=== PATIENT | female | born 1980 | race Caucasian/White ===

== ENCOUNTER 2016-11-03 11:16 | Emergency (ER) | payer MEDICARE, OTHER ==
[2016-11-03 11:26] VITALS: BMI 22.4
[2016-11-03] MEDS ORDERED: ONDANSETRON 4 MG/2 ML VIAL IVPUSH ONE (11:42)
[2016-11-03] MEDS ORDERED: FAMOTIDINE 20 MG/50 ML IVPB 50 ML IVPB ONE ×2 (11:44→11:56)
[2016-11-03] MEDS ORDERED: ONDANSETRON 4 MG/2 ML VIAL ONE (11:45)
[2016-11-03] MEDS ORDERED: SODIUM CHLORIDE 0.9% 1000 ML INFUS.BAG IV ONE (11:45)
--- NOTE | 2016-11-03 11:55 | PDOC ---
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 The pt states that paproximately 1 month ago, she had intermittent episodes of vomiting, perhaps 1 every few days.. but the past 3 days, it has progressed to the point where she is vomiting multiple times a day - typically it is foamy, clear and looks like food contents without signs of blood, and is not green. pt denies any associated pain including headache, vision changes, chest pain/sob, abdominal pain (unless she is actively vomiting, but resolves shortly afterwards ). No associated diarrhea/melena, fever/chills. Pt went on a cruise in june but was fine for several months prior to onset of these sypmtoms. No proir GI symptoms in the past. The pt states she went to her PMD who referred her to GI and she has an appontment for endoscopy in January. - Physicial Exam PE: 11/03/16 11:59 GENERAL: The patient is awake, alert, and fully oriented, Nontoxic - in no acute distress. HEAD: Normocephalic, atraumatic. EYES: aniridia of R pupil, L pupils 2mm and reactive to light ENT: Normal voice, dry mucous membranes. NECK: Normal range of motion, supple LUNGS: Breath sounds equal, clear to auscultation bilaterally. No wheezes, no rhonchi, no rales. HEART: Regular rate and rhythm, normal S1 and S2 without murmur, rub or gallop. ABDOMEN: Soft, nontender, normoactive bowel sounds. No guarding, no rebound. . No CVA tenderness EXTREMITIES: Normal range of motion, no edema. NEUROLOGICAL: No facial assymetry, Normal speech, normal gait PSYCH: Normal mood, normal affect. SKIN: Warm, Dry, normal turgor, - Medical Decision Making 11/03/16 12:10 36y F hx of congenital rubellla presents with persistrent intractable vomiting worsening over 3 days w/o associated abd pain, chest pain, head ache, dizziness, fever/chills, diarhea. on exam pt appears in n odistres but has intermittent vomiting episodes will ck labs to ro metabolic dernagment, uti, , pancreatitis no abd tenderness to suggest intrabdominal peritonitis or obstruction will give fluids, zofran will reassess 11/03/16 15:35 pts labs unremarkble ua notable for ketonuria pt persistently vomting and has occasional stress incontinence (Which she says is old) as pt has no abdominal pain or tenderness will start with head CT to r/o mass/ICH 11/03/16 16:[address] negative pt feelnig significant improvement able to tolerate oral intake here her abdomen was reassessed and it is soft nontender. jie dc the pt with PO reglan/zofran and PMD/gastro fu this week return precautions were discussed I discussed the physical exam findings, ancillary test results and final diagnoses with the patient. I answered all of the patient's questions. The patient was satisfied with the care received and felt comfortable with the discharge plan and treatment plan. The patient will call their primary care physician within 24 hours to arrange follow-up and will return to the Emergency Department with any new, persistent or worsening symptoms.
[2016-11-03 12:27] LABS: BASOPHIL 0.8 % (0-2.0); MCH 31.9 pg (25.7-33.7); MEAN CELL VOLUME 91.3 fl (80-96); MEAN PLT VOLUME 8.5 fl (7.5-11.1); NEUTROPHILS 83.4 % (42.8-82.8); PLATELET COUNT 296 K/MM3 (134-434); WHITE BLOOD COUNT 10.8 K/mm3 (4.0-10.8)
[2016-11-03 12:37] LABS: URINE APPEARANCE Clear; URINE BILIRUBIN 1+ (NEGATIVE); URINE BLOOD 3+ (NEGATIVE); URINE GLUCOSE (UA) Negative (NEGATIVE); URINE KETONE 4+ (NEGATIVE); URINE LEUK ESTERASE Negative (NEGATIVE); URINE NITRITE Negative (NEGATIVE); URINE PROTEIN 2+ (NEGATIVE); URINE UROBILINOGEN 0.2 (0.2-1.0)
[2016-11-03 12:38] LABS: URINE COLOR YELLOW
[2016-11-03 12:39] LABS: ALBUMIN 5.1 g/dl (3.5-5.0); ALK PHOS 73 U/L (32-92); ANION GAP 14 (8-16); BILIRUBIN,TOTAL 1.5 mg/dl (0.2-1.0); CALCIUM 10.1 mg/dl (8.4-10.2); CO2 21 mmol/L (22-28); CREATININE 0.9 mg/dl (0.6-1.3); GLUCOSE,RANDOM 147 mg/dl (74-106); SGOT/AST 23 U/L (10-42); SGPT/ALT 18 U/L (10-40); TOT PROT 9.1 g/dl (6.4-8.3)
[2016-11-03] MEDS ORDERED: METOCLOPRAMIDE HCL INJECTION 10 MG/2 ML VIAL IVPUSH ONE (13:37)
--- NOTE | 2016-11-03 14:09 | PDOC ---
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 She has had one month of nausea and occasional vomiting that would resolve on its own but this has acutely worsened over the past three days and she claims that she has not been able to keep down food or water. The vomiting is not related to food ingestion and is non-bilious and non- bloody. The abdominal pain is a sharp epigastric pain only present when she is about to vomit and does not proceed the vomiting or present in isolation of the vomiting. She has also had fluctuating diarrhea and constipation over the past few days. She had some nausea, comiting, and abdominal pain intermittenyl over the past few years and was scheduled to see her GI doctor in January for a scope. Over the past few years, she also has been incontinent of urine whenever she vomits she has small amounts of micturition. She has been using diapers occasionally because of this problem. She denies alcohol or illicit substance abuse but does occasionally smokes marijuana a few times per week. She had no strange food ingestion. Her LMP was 10/22/2016. Denies fevers, chills, chest pain , headache, LOC, visual changes, gait abnormalities, or other symptoms. 11/03/16 15:03 <Shakir Goode - Last Filed: 11/03/16 17:19> - General Chief Complaint: Pain, Acute Stated Complaint: abd pain Time Seen by Provider: 11/03/16 11:18 Past History <Jerman Garcia - Last Filed: 11/03/16 16:50> - Past Medical History Other medical history: pt denies - Psycho/Social/Smoking Cessation Hx Anxiety: No Suicidal Ideation: No Smoking History: Never smoked Hx Alcohol Use: Yes (occasional) Drug/Substance Use Hx: No Substance Use Type: Marijuana <Shakir Goode - Last Filed: 11/03/16 17:19> - Past Medical History Allergies/Adverse Reactions: Allergies Allergy/AdvReac Type Severity Reaction Status Date / Time No Known Allergies Allergy Verified 11/03/16 11:20 Home Medications: Ambulatory Orders Metoclopramide HCl [Reglan] 10 mg PO QID PRN #20 tablet 11/03/16 Ondansetron [Zofran Odt -] 4 mg SL BID PRN #14 od.tablet 11/03/16 Review of Systems - Review of Systems Constitutional: No: Chills, Diaphoresis, Fever, Loss of Appetite, Weakness HEENTM: No: Eye Pain, Blurred Vision, Tearing, Recent change in vision, Double Vision Respiratory: No: Cough, Orthopnea, Shortness of Breath, SOB with Exertion Cardiac (ROS): No: Chest Pain, Edema ABD/GI: Yes: Constipated, Diarrhea, Nausea, Poor Appetite, Vomiting. No: Abdominal Distended : No: Dysuria, Discharge, Frequency, Flank Pain Musculoskeletal: No: Back Pain, Joint Pain, Muscle Pain Integumentary: No: Change in Color, Dryness, Erythema Neurological: No: Headache, Paresthesia, Seizure <Shakir Goode - Last Filed: 11/03/16 17:19> *Physical Exam - Vital Signs Last Vital Signs Temp Pulse Resp BP Pulse Ox 97.8 F 102 H 18 139/68 98 11/03/16 11:17 11/03/16 14:38 11/03/16 14:38 11/03/16 14:38 11/03/16 14:38 <Jerman Garcia - Last Filed: 11/03/16 16:50> - Vital Signs Last Vital Signs Temp Pulse Resp BP Pulse Ox 97.8 F 70 18 178/88 100 11/03/16 11:17 11/03/16 11:17 11/03/16 11:17 11/03/16 11:54 11/03/16 11:17 - Physical Exam General Appearance: Yes: Nourished, Appropriately Dressed, Apparent Distress, Moderate Distress, Other (actively vomiting intermittenyl durig our interview) HEENT: positive: Normal Voice. 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 negative: Tender, Rigid Respiratory/Chest: positive: Lungs Clear, Normal Breath Sounds. negative: Chest Tender, Respiratory Distress Cardiovascular: positive: Regular Rhythm, Regular Rate, S1, S2, JVD. negative: Edema Gastrointestinal/Abdominal: positive: Normal Bowel Sounds, Flat, Soft. negative : Tender, Organomegaly, Pulsatile Mass, Increased Bowel Sounds Musculoskeletal: positive: Normal Inspection Integumentary: positive: Normal Color, Dry, Warm Neurologic: positive: Fully Oriented, Alert, Motor Strength 5/5, Other (Affect slightly labile as she seems very anxious and agitated but not agressive.). negative: Normal Mood/Affect (Appears to be very anxious, jittery, with a fast speech, ) <Shakir Goode - Last Filed: 11/03/16 17:19> ED Treatment Course - LABORATORY CBC & Chemistry Diagram: 11/03/16 11:50 11/03/16 11:50 - ADDITIONAL ORDERS Additional order review: Laboratory Results 11/03/16 11/03/16 11/03/16 13:25 11:50 11:50 Sodium 137 Potassium 4.3 Chloride 102 Carbon Dioxide 21 L Anion Gap 14 BUN 14 Creatinine 0.9 Creat Clearance w eGFR > 60 Random Glucose 147 H Calcium 10.1 Total Bilirubin 1.5 H AST 23 ALT 18 Alkaline Phosphatase 73 Total Protein 9.1 H Albumin 5.1 H Lipase 22 Serum , Qual Negative Urine Color Urine Appearance Urine pH Ur Specific Theodore Urine Protein Urine Glucose (UA) Urine Ketones Urine Blood Urine Nitrite Urine Bilirubin Urine Urobilinogen Ur Leukocyte Esterase Opiates Screen Negative Methadone Screen Negative Barbiturate Screen Negative Phencyclidine Screen Negative Ur Amphetamines Screen Negative MDMA (Ecstasy) Screen Negative Benzodiazepines Screen Negative Cocaine Screen Negative U Marijuana (THC) Screen Negative 11/03/16 11:50 Sodium Potassium Chloride Carbon Dioxide Anion Gap BUN Creatinine Creat Clearance w eGFR Random Glucose Calcium Total Bilirubin AST ALT Alkaline Phosphatase Total Protein Albumin Lipase Serum , Qual Urine Color Yellow Urine Appearance Clear Urine pH 6.0 Ur Specific Theodore >= 1.030 H Urine Protein 2+ H Urine Glucose (UA) Negative Urine Ketones 4+ H Urine Blood 3+ H Urine Nitrite Negative Urine Bilirubin 1+ H Urine Urobilinogen 0.2 Ur Leukocyte Esterase Negative Opiates Screen Methadone Screen Barbiturate Screen Phencyclidine Screen Ur Amphetamines Screen MDMA (Ecstasy) Screen Benzodiazepines Screen Cocaine Screen U Marijuana (THC) Screen 11/03/16 11:50 RBC 5.17 MCV 91.3 MCHC 35.0 RDW 12.0 MPV 8.5 Neutrophils % 83.4 H Lymphocytes % 11.3 Monocytes % 4.5 Eosinophils % 0.0 Basophils % 0.8 - Medications Given in the ED: ED Medications Discontinued Medications Generic Name Dose Route Start Last Admin Trade Name Callum PRN Reason Stop Dose Admin Al Hydroxide/Mg Hydroxide 30 ml 11/03/16 14:17 11/03/16 14:37 Mylanta Oral Suspension - PO 11/03/16 14:18 30 ml ONCE ONE Administration Diphenhydramine HCl 25 mg 11/03/16 11:44 11/03/16 12:02 Benadryl Injection - IVPUSH 11/03/16 11:45 25 mg ONCE ONE Administration Famotidine/Sodium Chloride 50 mls @ 100 mls/hr 11/03/16 11:44 11/03/16 12:48 Pepcid 20 Mg Premixed Ivpb - IVPB 11/03/16 12:13 100 mls/hr ONCE ONE Administration Lidocaine HCl 20 ml 11/03/16 14:18 11/03/16 14:37 Xylocaine 2% Viscous Oral - MM 11/03/16 14:19 20 ml ONCE ONE Administration Metoclopramide HCl 10 mg 11/03/16 13:37 11/03/16 14:02 Reglan Injection - IVPUSH 11/03/16 13:38 10 mg ONCE ONE Administration Ondansetron HCl 4 mg 11/03/16 11:42 11/03/16 11:54 Zofran Injection IVPUSH 11/03/16 11:43 4 mg ONCE ONE Administration Sodium Chloride 1,000 ml 11/03/16 11:45 11/03/16 11:54 Normal Saline - IV 11/03/16 11:46 1,000 ml ONCE ONE Administration Sodium Chloride 1,000 ml 11/03/16 14:16 11/03/16 14:20 Normal Saline - IV 11/03/16 14:17 1,000 ml ONCE ONE Administration <Jerman Garcia - Last Filed: 11/03/16 16:50> - LABORATORY CBC & Chemistry Diagram: 11/03/16 11:50 11/03/16 11:50 - ADDITIONAL ORDERS Additional order review: Laboratory Results 11/03/16 11/03/16 11/03/16 11:50 11:50 11:50 Sodium 137 Potassium 4.3 Chloride 102 Carbon Dioxide 21 L Anion Gap 14 BUN 14 Creatinine 0.9 Creat Clearance w eGFR > 60 Random Glucose 147 H Calcium 10.1 Total Bilirubin 1.5 H AST 23 ALT 18 Alkaline Phosphatase 73 Total Protein 9.1 H Albumin 5.1 H Lipase 22 Serum , Qual Negative Urine Color Yellow Urine Appearance Clear Urine pH 6.0 Ur Specific Theodore >= 1.030 H Urine Protein 2+ H Urine Glucose (UA) Negative Urine Ketones 4+ H Urine Blood 3+ H Urine Nitrite Negative Urine Bilirubin 1+ H Urine Urobilinogen 0.2 Ur Leukocyte Esterase Negative 11/03/16 11:50 RBC 5.17 MCV 91.3 MCHC 35.0 RDW 12.0 MPV 8.5 Neutrophils % 83.4 H Lymphocytes % 11.3 Monocytes % 4.5 Eosinophils % 0.0 Basophils % 0.8 - Medications Given in the ED: ED Medications Discontinued Medications Generic Name Dose Route Start Last Admin Trade Name Freq PRN Reason Stop Dose Admin Diphenhydramine HCl 25 mg 11/03/16 11:44 11/03/16 12:02 Benadryl Injection - IVPUSH 11/03/16 11:45 25 mg ONCE ONE Administration Famotidine/Sodium Chloride 50 mls @ 100 mls/hr 11/03/16 11:44 11/03/16 12:48 Pepcid 20 Mg Premixed Ivpb - IVPB 11/03/16 12:13 100 mls/hr ONCE ONE Administration Metoclopramide HCl 10 mg 11/03/16 13:37 11/03/16 14:02 Reglan Injection - IVPUSH 11/03/16 13:38 10 mg ONCE ONE Administration Ondansetron HCl 4 mg 11/03/16 11:42 11/03/16 11:54 Zofran Injection IVPUSH 11/03/16 11:43 4 mg ONCE ONE Administration Sodium Chloride 1,000 ml 11/03/16 11:45 11/03/16 11:54 Normal Saline - IV 11/03/16 11:46 1,000 ml ONCE ONE Administration <Shakir Goode - Last Filed: 11/03/16 17:19> Medical Decision Making - Medical Decision Making 36 year old female with three days of intractable vomiting. She states that she has had this problem in the past and was actually set to have a scope from her GI doctor in January but today it is much worse and she hasn't been able to keep any food down. Will try Zofran, IV fluids, pepcid, and GI cocktail once she is able to tolerate PO. Will also send Utox, upreg, ua, cbc, cmp, lipase. 11/03/16 15:52 She was given a dose of reglan because there was no response to the zofran and she responded well. Her urine came back with ketones so another liter of IV NS was given. We got a CT of her head that was negative for any mass or increased ICP. PO challenged her and she endorsed a little bit of nausea after but was able to keep the food down. Will reassess in a half an hour. 11/03/16 17:17 Patient still doing well and will go home with Reglan, Zofran, and GI follow up instructions. 11/03/16 17:18 <Shakir Goode - Last Filed: 11/03/16 17:19> *DC/Admit/Observation/Transfer - Discharge Dispostion Admit: No <Jerman Garcia - Last Filed: 11/03/16 16:50> - Discharge Dispostion Admit: No - Attestations Physician Attestion: I, Dr. Shakir Goode, attest that this document has been prepared under my direction and personally reviewed by me in its entirety. I further attest, that it accurately reflects all work, treatment, procedures and medical decision -making performed by me. 11/03/16 17:19 <Shakir Goode - Last Filed: 11/03/16 17:19> Diagnosis at time of Disposition: Nausea & vomiting Qualifiers: Vomiting type: unspecified Vomiting Intractability: non-intractable Qualified Code(s): R11.2 - Nausea with vomiting, unspecified - Discharge Dispostion Disposition: HOME Condition at time of disposition: Good - Prescriptions Prescriptions: Metoclopramide HCl [Reglan] 10 mg PO QID PRN #20 tablet PRN Reason: Nausea Ondansetron [Zofran Odt -] 4 mg SL BID PRN #14 od.tablet PRN Reason: Nausea - Referrals Referrals: Vamsi Arguello MD [Staff Physician] - - Patient Instructions Printed Discharge Instructions: DI for Vomiting -- Adult Additional Instructions: Return to the emergency department immediately with ANY new, persistent or worsening symptoms including any abdmoinal pain, fevers, persistent vomiting, headache, chest pain, or any other concerns. Make adin eyou are staying well hydrated, if you are feeling nausaus try the Zofran ODT first. You MUST call and follow up with your doctor and your armhole ra[facility] lockstitch at [facility] within 5 days for further evaluation of your symptoms. Results were discussed with you. Please make sure your doctor reviews the results of your emergency evaluation. Print Language: PORTUGUESE
[2016-11-03] MEDS ORDERED: SODIUM CHLORIDE 0.9% 500 ML INFUS.BAG IV ONE (14:16)
[2016-11-03] MEDS ORDERED: MAG HYDROX/AL HYDROX/SIMETH 30 ML UNIT-DOSE CUP PO ONE (14:17)
[2016-11-03] MEDS ORDERED: LIDOCAINE VISCOUS 2% ORAL/TOP 20 ML UNIT-DOSE CUP MM ONE (14:18)
[2016-11-03] MEDS ORDERED: MAG HYDROX/AL HYDROX/SIMETH 30 ML UNIT-DOSE CUP ONE (14:23)
[2016-11-03] MEDS ORDERED: LIDOCAINE VISCOUS 2% ORAL/TOP 100 ML BOTTLE ONE (14:24)
[2016-11-03 14:55] LABS: URINE MARIJUANA THC NEGATIVE ng/ml (CUTOFF=50)
[2016-11-03 16:52] VITALS: BP 159/88; PULSE 62; TEMP 98.5
[2016-11-03 18:55] LABS: URINE RBC 0-2 /hpf (0-3)
[2016-11-03 18:56] LABS: URINE BACTERIA MODERATE /hpf (NEGATIVE)
--- NOTE | 2016-11-04 12:58 | EKG ---
Test Reason : Blood Pressure : / mmHG Vent. Rate : 100 BPM Atrial Rate : 100 BPM P-R Int : 138 ms QRS Dur : 078 ms QT Int : 368 ms P-R-T Axes : 070 001 048 degrees QTc Int : 474 ms NORMAL SINUS RHYTHM POSSIBLE LEFT ATRIAL ENLARGEMENT BORDERLINE ECG NO PREVIOUS ECGS AVAILABLE Confirmed by JITENDRA SEPULVEDA MD ([id number] on 11/04/2016 12:57:39 PM Referred By: SALOME HERNANDEZ Confirmed By:JITENDRA SEPULVEDA MD
== END 2016-11-03 18:32 | disposition home or self-care (01) ==
LOC: FER 11:16
PROC: 3E033GC Introduction of Other Therapeutic Substance into Peripheral Vein, Percutaneous Approach (ICD-10-PCS; principal; 2016-11-03)
PROC: 3E0337Z Introduction of Electrolytic and Water Balance Substance into Peripheral Vein, Percutaneous Approach (ICD-10-PCS; 2016-11-03)
DX: R11.2 Nausea with vomiting, unspecified (principal); P35.0 Congenital rubella syndrome
CPT/HCPCS: 36415; 70450-TC; 80053; 80307; 81003; 81015; 83690; 84703; 85025; 93005; 99283-25